=== PATIENT | male | born 1960 | race Caucasian/White ===

== ENCOUNTER 2018-12-24 08:09 | Day surgery (SDC) | payer BC ==
[2018-12-19 10:33] VITALS: BMI 33.2
[2018-12-24] MEDS ORDERED: PROPOFOL 20 ML ONE ×4 (08:19)
[2018-12-24 08:30] VITALS: TEMP 97.6
[2018-12-24 10:31] VITALS: BP 107/67; PULSE 56
--- NOTE | 2018-12-26 15:36 | PATH ---
Surgical Pathology Report Patient Name: YRIS FERNANDES [facility]. Rec. #: [id number] /Age/Gender: 1960 (Age: 58) / M Account: [id number] Location: [facility] Taken: 12/24/2018 Received: 12/24/2018 Reported: 12/26/2018 Physicians: Juan Ponce M.D. Specimen(s) Received A: SECOND PORTION DUODENUM B: ANTRUM Clinical History GERD, screening Postoperative diagnosis: Gastritis, distal esophageal stricture, normal colon Final Diagnosis A. SECOND PORTION OF DUODENUM, BIOPSY: DUODENAL MUCOSA WITH NO PATHOLOGIC FINDINGS. B. GASTRIC ANTRUM, BIOPSY: MILD CHRONIC GASTRITIS. IMMUNOSTAIN IS NEGATIVE FOR H. PYLORI ORGANISMS. Electronically Signed Alice Vargas M.D. Gross Description A. Received in formalin, labeled "biopsy second portion of duodenum" are 2 driver, irregular portions of soft tissue measuring 0.3 and 0.4 cm. in greatest dimension. The specimens are submitted in toto in one cassette. B. Received in formalin, labeled "biopsy gastric antrum" are 2 driver, irregular portions of soft tissue measuring 0.3 and 0.4 cm. in greatest dimension. The specimens are submitted in toto in one cassette. 12/25/201812/25/2018
== END 2018-12-24 10:40 | disposition home or self-care (01) ==
LOC: FASU-ENDO 08:09
PROVIDERS: ATTEND Internal Medicine Gastroenterology
PROC: 0DB98ZX Excision of Duodenum, Via Natural or Artificial Opening Endoscopic, Diagnostic (ICD-10-PCS; 2018-12-24)
PROC: 0DB68ZX Excision of Stomach, Via Natural or Artificial Opening Endoscopic, Diagnostic (ICD-10-PCS; 2018-12-24)
PROC: 0D748DZ Dilation of Esophagogastric Junction with Intraluminal Device, Via Natural or Artificial Opening Endoscopic (ICD-10-PCS; 2018-12-24)
PROC: 0DJD8ZZ Inspection of Lower Intestinal Tract, Via Natural or Artificial Opening Endoscopic (ICD-10-PCS; principal; 2018-12-24 09:30)
DX: Z12.11 Encounter for screening for malignant neoplasm of colon (principal); K29.50 Unspecified chronic gastritis without bleeding; K22.2 Esophageal obstruction; R10.13 Epigastric pain
CPT/HCPCS: 88305-TC; 88342-TC

== ENCOUNTER 2023-07-11 08:33 | Emergency (ER) | payer OTHER ==
[2023-07-11 08:48] VITALS: TEMP 98.6; BMI 33.7
[2023-07-11] MEDS ORDERED: morphine SULFATE 4 MG/ML VIAL ONE ×2 (09:17→11:44)
[2023-07-11] MEDS ORDERED: ACETAMINOPHEN INJECTION 100 ML IVPB ONE (09:17)
[2023-07-11] MEDS ORDERED: ONDANSETRON 4 MG/2 ML VIAL ONE (09:17)
[2023-07-11] MEDS ORDERED: FAMOTIDINE 20 MG/50 ML IVPB 20 MG/50 ML MG IVPB ONE (09:17)
[2023-07-11] MEDS: LACTATED RINGERS SOLUTION 1000 ML INFUS.BAG IV ONE (10:05)
[2023-07-11] MEDS: ACETAMINOPHEN 1000 MG/100 ML BAG IVPB ONE (10:05)
[2023-07-11] MEDS: morphine CARPU-JECT 4 MG/1 ML DISP.SYRIN IVPUSH ONE ×2 (10:05→13:21)
[2023-07-11] MEDS: FAMOTIDINE 20 MG/50 ML IVPB 20 MG/50 ML MG IVPB ONE (10:05)
[2023-07-11] MEDS: ONDANSETRON 4 MG/2 ML VIAL IVPUSH ONE (10:05)
[2023-07-11 10:20] LABS: HEMATOCRIT 47.7 % (35.4-49); HEMOGLOBIN 16.2 GM/dL (11.7-16.9); LYMPH % 5.9 % (8-40); MCH 29.2 pg (25.7-33.7); MCHC 33.9 g/dl (32.0-35.9); MEAN CELL VOLUME 86.3 fl (80-96); MONO % 7.2 % (3.8-10.2); NEUT % 86.9 % (42.8-82.8); PLATELET COUNT 206 10^3/uL (134-434); RBC 5.53 M/mm3 (4.00-5.60); RDW 15.7 % (11.9-15.9)
[2023-07-11 10:23] LABS: INR 1.05 (0.83-1.09); PROTHROMBIN TIME (PATIENT) 11.9 SEC (9.7-13.0)
[2023-07-11 10:26] LABS: ACTIVATED PTT 27.2 SECONDS (25.2-36.5)
[2023-07-11 10:33] LABS: POTASSIUM 4.9 mmol/L (3.5-5.1)
[2023-07-11 10:37] LABS: ALBUMIN 4.1 g/dl (3.4-5.0); CALCIUM 9.6 mg/dL (8.5-10.1); MAGNESIUM 1.7 mg/dL (1.8-2.4)
[2023-07-11 10:40] LABS: CREATININE 1.7 mg/dL (0.55-1.3)
[2023-07-11 10:42] LABS: BILIRUBIN,TOTAL 1.3 mg/dL (0.2-1); TOT PROT 7.2 g/dl (6.4-8.2)
[2023-07-11 11:02] LABS: LACTIC ACID 2.5 mmol/L (0.4-2.0)
[2023-07-11] MEDS ORDERED: MAGNESIUM 1GM/D5W - 1 GM/100 ML IVPB IVPB ONE (13:01)
[2023-07-11] MEDS: SODIUM CHLORIDE 0.9% 500 ML INFUS.BAG IV ONE (13:21)
[2023-07-11] MEDS: MAGNESIUM SULF 50% (8.12 MEQ/2 ML-1 GM VIAL) IVPB ONE (13:21)
[2023-07-11 13:22] LABS: EPI CELLS >36 /uL (0-25.1); HYALINE CASTS 34 /uL (0-3.1); URINE APPEARANCE CLOUDY; URINE BACTERIA 6 /uL (0-1359); URINE BILIRUBIN 1+ (NEGATIVE); URINE COLOR DK YELLOW; URINE GLUCOSE (UA) NEGATIVE (NEGATIVE); URINE KETONE 1+ (NEGATIVE); URINE LEUK ESTERASE NEGATIVE (NEGATIVE); URINE NITRITE NEGATIVE (NEGATIVE); URINE PROTEIN 1+ (NEGATIVE); URINE RBC 15 /uL (0-23.9)
[2023-07-11 14:00] LABS: LACTIC ACID 2.2 mmol/L (0.4-2.0)
[2023-07-11 14:10] LABS: URINE WBC 74 /uL (0-25.8)
[2023-07-11] MEDS ORDERED: HYDROmorphone HCl 2 MG/ML VIAL ONE (15:08)
[2023-07-11] MEDS: HYDROmorphone HCl 2 MG/ML VIAL IVPUSH ONE (15:16)
[2023-07-11] MEDS: CEFEPIME HCL/D5W 2 GM/50 ML BAG IVPB ONE (15:49)
[2023-07-11 16:09] VITALS: BP 155/86; PULSE 98; RESP 18
[2023-07-11] MEDS ORDERED: CEFEPIME 2 GM in DEXTROSE 5%-WATER 100 ML IVPB ONE (17:15)
== END 2023-07-11 16:09 | disposition short-term general hospital (02) ==
LOC: JER 08:33
PROC: 3E033GC Introduction of Other Therapeutic Substance into Peripheral Vein, Percutaneous Approach (ICD-10-PCS; principal; 2023-07-11)
PROC: 3E033NZ Introduction of Analgesics, Hypnotics, Sedatives into Peripheral Vein, Percutaneous Approach (ICD-10-PCS; 2023-07-11)
PROC: 3E033NZ Introduction of Analgesics, Hypnotics, Sedatives into Peripheral Vein, Percutaneous Approach (ICD-10-PCS; 2023-07-11)
PROC: 3E033GC Introduction of Other Therapeutic Substance into Peripheral Vein, Percutaneous Approach (ICD-10-PCS; 2023-07-11)
PROC: 3E033NZ Introduction of Analgesics, Hypnotics, Sedatives into Peripheral Vein, Percutaneous Approach (ICD-10-PCS; 2023-07-11)
PROC: 3E033NZ Introduction of Analgesics, Hypnotics, Sedatives into Peripheral Vein, Percutaneous Approach (ICD-10-PCS; 2023-07-11)
PROC: 3E033GC Introduction of Other Therapeutic Substance into Peripheral Vein, Percutaneous Approach (ICD-10-PCS; 2023-07-11)
DX: K85.90 Acute pancreatitis without necrosis or infection, unspecified (principal); K80.40 Calculus of bile duct with cholecystitis, unspecified, without obstruction; R74.01 Elevation of levels of liver transaminase levels; R10.84 Generalized abdominal pain; R14.0 Abdominal distension (gaseous); R11.10 Vomiting, unspecified; Z20.822 Contact with and (suspected) exposure to COVID-19
CPT/HCPCS: 0241U-QW; 36415; 71046-TC-FY; 76705-TC; 80053; 81003; 83605; 83690; 83735; 84484; 85025; 85610; 85730; 86850; 86900; 86901; 87086; 93005; 93010; 99285-25; J0131

== ENCOUNTER 2024-10-09 06:13 | Day surgery (SDC) | payer OTHER ==
[2024-09-30 12:25] VITALS: BMI 26.1
[2024-10-09] MEDS: BUPIVACAINE HCL/PF 0.5% (5 MG/ML) 30 ML VIAL IJ ONE
[2024-10-09] MEDS ORDERED: BUPIVACAINE HCL/PF 0.25% (2.5MG/ML) 10 ML VIAL ONE (09:40)
[2024-10-09] MEDS ORDERED: PROPOFOL 20 ML ONE (11:36)
[2024-10-09] MEDS ORDERED: MIDAZOLAM HCL 2 MG/2 ML SINGLE DOSE VIAL ONE (11:36)
[2024-10-09] MEDS ORDERED: ACETAMINOPHEN INJECTION 100 ML ONE (12:33)
[2024-10-09] MEDS ORDERED: DEXAMETHASONE SOD PHOSPHATE 4 MG/1 ML VIAL ONE ×2 (12:38)
[2024-10-09] MEDS ORDERED: ONDANSETRON 4 MG/2 ML VIAL ONE (12:38)
[2024-10-09] MEDS: BUPIVACAINE HCL/PF 0.25% (2.5MG/ML) 10 ML VIAL IJ ONE ×2 (13:11)
[2024-10-09] MEDS ORDERED: ONDANSETRON 4 MG/2 ML VIAL IVPUSH PRN (13:21)
[2024-10-09] MEDS ORDERED: SUGAMMADEX SODIUM 200 MG/2 ML VIAL ONE (15:33)
[2024-10-09] MEDS: LACTATED RINGERS SOLUTION 1,000 ML IV SCH (16:37)
[2024-10-09 17:29] VITALS: RESP 16
[2024-10-09 18:40] VITALS: BP 167/74; PULSE 41; TEMP 97.1
== END 2024-10-09 18:54 | disposition home or self-care (01) ==
LOC: JASU-SURG 06:13
PROVIDERS: ATTEND Surgery
PROC: 8E0W4CZ Robotic Assisted Procedure of Trunk Region, Percutaneous Endoscopic Approach (ICD-10-PCS; 2024-10-09)
PROC: 0YUA4JZ Supplement Bilateral Inguinal Region with Synthetic Substitute, Percutaneous Endoscopic Approach (ICD-10-PCS; principal; 2024-10-09 08:00)
DX: K40.20 Bilateral inguinal hernia, without obstruction or gangrene, not specified as recurrent (principal)
CPT/HCPCS: 49650; S2900; 82962; 88304-TC; 94760; C1781